=== PATIENT | female | born 1995 | race Caucasian/White ===

== ENCOUNTER 2020-08-19 13:37 | Outpatient (RCR) | payer OTHER, SELFPAY | END 2020-08-21 23:59 | disposition home or self-care (01) | LOC: SPT 13:37 | PROVIDERS: PCP Family Medicine Adult Medicine; Visit Provider Family Medicine Adult Medicine | DX: M54.5 Low back pain (principal); M79.605 Pain in left leg | CPT/HCPCS: 97110; 97162 ==

== ENCOUNTER 2020-08-22 06:00 | Outpatient (RCR) | payer OTHER, SELFPAY | END 2020-09-20 23:59 | disposition home or self-care (01) | LOC: SPT 06:00 | PROVIDERS: PCP Family Medicine Adult Medicine; Visit Provider Family Medicine Adult Medicine | DX: M54.5 Low back pain (principal); M79.605 Pain in left leg | CPT/HCPCS: 97110 ==